=== PATIENT | female | born 1970 | race Caucasian/White ===

== ENCOUNTER 2016-11-07 16:23 | Emergency (ER) | payer MEDICAID ==
[2016-11-07 17:12] LABS: BASOPHILS 0.4 % (0.0-2.0); EOSINOPHILS 0.9 % (0-7); HEMATOCRIT 41.6 % (36.0-48.0); HEMOGLOBIN 13.7 g/dL (12-16); IMMATURE GRANULOCYTES 0.3 % (0-5); LYMPHOCYTES 26.2 % (15-50); MCH 30.9 pg (26.0-34.0); MCHC 32.9 g/dL (31.0-37.0); MCV 93.9 fL (80.0-100.0); MEAN PLATELET VOLUME 9.9 fL (7.4-10.4); NEUTROPHILS 65.2 % (40-80); RBC 4.43 10x6/uL (4.00-5.40); RDW 13.1 % (11.5-14.5); WBC 10.8 10x3/uL (4.8-10.8)
[2016-11-07 17:15] LABS: PLATELET COUNT 369 10x3/uL (130-400)
[2016-11-07 17:19] LABS: KETONE - SERUM NEGATIVE (NEGATIVE)
[2016-11-07 17:25] LABS: ALBUMIN 3.3 g/dL (3.4-5.0); ALKALINE PHOSPHATASE 86 U/L (46-116); ALT (SGPT) 29 U/L (10-68); BILIRUBIN - TOTAL 0.43 mg/dL (0.2-1.3); CALC OSMOLALITY 277 mosm/kg (275-300); CARBON DIOXIDE 27.5 mmol/L (21.0-32.0); CHLORIDE - SERUM 99 mmol/L (98-107); CREATININE - SERUM 0.7 mg/dL (0.6-1.3); GLUCOSE 251 mg/dL (74-106); POTASSIUM - SERUM 3.9 mmol/L (3.5-5.1); PROTEIN - SERUM 7.3 g/dL (6.4-8.2); SODIUM 136 mmol/L (136-145); UREA NITROGEN 8 mg/dL (7-18); eGFR NON AFRICAN AMERICAN > 90 mL/min (90-120)
[2016-11-07 17:36] LABS: APPEARANCE HAZY (CLEAR); BILIRUBIN NEGATIVE (NEGATIVE); COLOR YELLOW (YELLOW); GLUCOSE 1000 mg/dL (NEGATIVE); KETONE NEGATIVE (NEGATIVE); LEUKOCYTE ESTERASE 2+ (NEGATIVE); NITRITE NEGATIVE (NEGATIVE); PROTEIN NEGATIVE (NEGATIVE); SPECIFIC GRAVITY 1.015 (1.005-1.020); UROBILINOGEN NORMAL (NORMAL)
[2016-11-07 17:38] LABS: BACTERIA MODERATE /hpf (NONE SEEN); EPITHELIAL CELLS 0-5 /hpf (0-5); RED CELLS - URINE OCC /hpf (0-5)
== END 2016-11-07 18:21 | disposition home or self-care (01) ==
LOC: D.ER 16:23
PROVIDERS: Emergency Medicine
DX: E11.65 Type 2 diabetes mellitus with hyperglycemia (principal); L03.90 Cellulitis, unspecified; N76.0 Acute vaginitis

== ENCOUNTER 2018-07-07 15:41 | Emergency (ER) | payer MEDICAID ==
[~2018-07-07] VITALS: Ht 175.3 cm; Wt 88.6 kg
[2018-07-07 15:46] VITALS: Ht 175.3 cm; Wt 88.6 kg
[2018-07-07] MEDS ORDERED: GLUCOPHAGE1000 MG PO (15:47)
[2018-07-07] MEDS ORDERED: VENTOLIN HFA18 GM INH (15:48)
[2018-07-07] MEDS ORDERED: GLIPIZIDE10 MG PO (15:48)
[2018-07-07] MEDS ORDERED: ADVAIR HFA [SP]12 GM INH (15:48)
[2018-07-07 16:06] LABS: BASOPHILS 0.2 % (0-2); EOSINOPHILS 0.8 % (0-7); HEMATOCRIT 41.3 % (36.0-48.0); HEMOGLOBIN 14.6 g/dL (12-16); IMMATURE GRANULOCYTES 0.2 % (0-5); LYMPHOCYTES 25.5 % (15-50); MCH 31.3 pg (26.0-34.0); MCHC 35.4 g/dL (31.0-37.0); MCV 88.4 fL (80.0-100.0); MEAN PLATELET VOLUME 9.5 fL (7.4-10.4); MONOCYTES 6.4 % (2-11); NEUTROPHILS 66.9 % (40-80); PLATELET COUNT 312 10x3/uL (130-400); RBC 4.67 10x6/uL (4.00-5.40); RDW 12.2 % (11.5-14.5); WBC 12.8 10x3/uL (4.8-10.8)
[2018-07-07 16:26] LABS: ALBUMIN 3.4 g/dL (3.4-5.0); ALKALINE PHOSPHATASE 81 U/L (46-116); ALT (SGPT) 35 U/L (10-68); CALC OSMOLALITY 275 mosm/kg (275-300); CALCIUM 8.7 mg/dL (8.5-10.1); CARBON DIOXIDE 26.3 mmol/L (21.0-32.0); CHLORIDE - SERUM 101 mmol/L (98-107); CREATININE - SERUM 0.7 mg/dL (0.6-1.3); GLUCOSE 266 mg/dL (74-106); PROTEIN - SERUM 7.4 g/dL (6.4-8.2); SODIUM 134 mmol/L (136-145); UREA NITROGEN 9 mg/dL (7-18); eGFR NON AFRICAN AMERICAN > 90 mL/min (90-120)
[2018-07-07 16:26] LABS: APPEARANCE HAZY (CLEAR); BILIRUBIN NEGATIVE (NEGATIVE); COLOR YELLOW (YELLOW); GLUCOSE 1000 mg/dL (NEGATIVE); KETONE NEGATIVE (NEGATIVE); NITRITE POSITIVE (NEGATIVE); PROTEIN 1+ mg/dL (NEGATIVE); UROBILINOGEN NORMAL (NORMAL)
[2018-07-07 16:27] LABS: WHITE CELLS - URINE 25-50 /hpf (0-5)
[2018-07-07 16:28] LABS: BACTERIA MANY /hpf (NONE SEEN); EPITHELIAL CELLS 0-5 /hpf (0-5)
== END 2018-07-07 17:36 | disposition home or self-care (01) ==
LOC: D.ER 15:41
PROVIDERS: Family Medicine
DX: R10.9 Unspecified abdominal pain (principal)

== ENCOUNTER 2018-10-31 12:58 | Emergency (ER) | payer MEDICAID ==
[~2018-10-31 12:58] MED LIST: ADVAIR HFA [SP]12 GM INH; GLIPIZIDE10 MG PO; GLUCOPHAGE1000 MG PO; VENTOLIN HFA18 GM INH
[2018-10-31 13:07] VITALS: Ht 175.3 cm
[2018-10-31] MEDS ORDERED: VICTOZA0.6 MG/0.1 SQ (13:08)
[2018-10-31] MEDS ORDERED: BACLOFEN20 M1 PO (15:40)
[2018-10-31] MEDS ORDERED: VOLTAREN75 MG PO (15:40)
[2018-10-31 16:10] VITALS: BP 128/83
== END 2018-10-31 16:10 | disposition home or self-care (01) ==
LOC: D.ER 12:58
DX: S93.402A Sprain of unspecified ligament of left ankle, initial encounter (principal); W18.30XA Fall on same level, unspecified, initial encounter; Y93.89 Activity, other specified; Y92.019 Unspecified place in single-family (private) house as the place of occurrence of the external cause; E11.9 Type 2 diabetes mellitus without complications; F17.200 Nicotine dependence, unspecified, uncomplicated

== ENCOUNTER → 2019-05-31 15:30 | Outpatient (CLI) | payer OTHER ==
[~2019-05-31 15:30] MED LIST changes: +BACLOFEN20 M1 PO; +VICTOZA0.6 MG/0.1 SQ; +VOLTAREN75 MG PO
== END | disposition home or self-care (01) ==
LOC: D.RT 15:30
PROVIDERS: ATTEND Pediatrics
DX: Z02.71 Encounter for disability determination (principal)

== ENCOUNTER 2019-08-31 14:35 | Emergency (ER) | payer MEDICAID ==
[~2019-08-31] VITALS: Ht 175.3 cm; Wt 98.6 kg
[2019-08-31 14:41] VITALS: Ht 175.3 cm; Wt 98.6 kg
[2019-08-31] MEDS ORDERED: LANTUS SQ (14:44)
[2019-08-31 15:19] LABS: APPEARANCE CLEAR (CLEAR); BILIRUBIN NEGATIVE (NEGATIVE); COLOR YELLOW (YELLOW); GLUCOSE NEGATIVE (NEGATIVE); KETONE NEGATIVE (NEGATIVE); NITRITE NEGATIVE (NEGATIVE); PROTEIN NEGATIVE (NEGATIVE)
[2019-08-31 15:22] LABS: CALC OSMOLALITY 275 mosm/kg (275-300); CALCIUM 9.1 mg/dL (8.5-10.1); CARBON DIOXIDE 30.3 mmol/L (21.0-32.0); CHLORIDE - SERUM 103 mmol/L (98-107); CREATININE - SERUM 0.6 mg/dL (0.6-1.3); POTASSIUM - SERUM 3.7 mmol/L (3.5-5.1); SODIUM 139 mmol/L (136-145); UREA NITROGEN 9 mg/dL (7-18); eGFR NON AFRICAN AMERICAN > 90 mL/min (90-120)
[2019-08-31 15:28] LABS: ALBUMIN 3.5 g/dL (3.4-5.0); ALKALINE PHOSPHATASE 84 U/L (46-116); ALT (SGPT) 32 U/L (10-68); AMYLASE - SERUM 40 U/L (25-115); BASOPHILS 0.3 % (0-2); BILIRUBIN - TOTAL 0.53 mg/dL (0.2-1.3); EOSINOPHILS 0.8 % (0-7); HEMOGLOBIN 15.8 g/dL (12-16); IMMATURE GRANULOCYTES 0.2 % (0-5); LIPASE 87 U/L (73-393); LYMPHOCYTES 30.5 % (15-50); MCH 30.9 pg (26.0-34.0); MCHC 33.6 g/dL (31.0-37.0); MEAN PLATELET VOLUME 9.9 fL (7.4-10.4); MONOCYTES 6.7 % (2-11); NEUTROPHILS 61.5 % (40-80); PLATELET COUNT 337 10x3/uL (130-400); PROTEIN - SERUM 7.5 g/dL (6.4-8.2); RBC 5.11 10x6/uL (4.00-5.40); WBC 11.4 10x3/uL (4.8-10.8)
[2019-08-31 15:29] LABS: GLUCOSE 77 mg/dL (74-106)
[2019-08-31 16:37] LABS: KETONE - SERUM NEGATIVE (NEGATIVE)
[2019-08-31] MEDS ORDERED: ZOFRAN ODT4 MG/UDTAB PO (16:48)
[2019-08-31 17:27] VITALS: BP 154/90
== END 2019-08-31 17:18 | disposition home or self-care (01) ==
LOC: D.ER 14:35
PROVIDERS: Family Medicine
DX: A08.4 Viral intestinal infection, unspecified (principal); R05 Cough; E11.9 Type 2 diabetes mellitus without complications; Z79.84 Long term (current) use of oral hypoglycemic drugs; J45.909 Unspecified asthma, uncomplicated; Z72.0 Tobacco use

== ENCOUNTER 2019-11-02 20:34 | Emergency (ER) | payer MEDICAID ==
[2019-08-31 14:41] VITALS: BMI 32.1
[~2019-11-02 20:34] MED LIST changes: +LANTUS SQ; +ZOFRAN ODT4 MG/UDTAB PO
== END 2019-11-02 20:50 | disposition left against medical advice (07) ==
LOC: D.ER 20:34
DX: S99.929A Unspecified injury of unspecified foot, initial encounter (principal); X58.XXXA Exposure to other specified factors, initial encounter; Z53.29 Procedure and treatment not carried out because of patient's decision for other reasons

== ENCOUNTER 2020-12-16 10:56 | Emergency (ER) | payer MEDICAID ==
[~2020-12-16] VITALS: Ht 175.3 cm; Wt 90.0 kg
[2020-12-16 10:58] VITALS: BP 114/68; Ht 175.3 cm; Wt 90.0 kg
[2020-12-16 11:11] LABS: BILIRUBIN NEGATIVE (NEGATIVE); KETONE NEGATIVE (NEGATIVE); NITRITE POSITIVE (NEGATIVE); UROBILINOGEN NORMAL mg/dL (< 2)
[2020-12-16 11:12] LABS: WHITE CELLS - URINE 25-50 HPF (0-4)
[2020-12-16 11:13] LABS: BACTERIA MODERATE HPF (NONE SEEN); SQUAMOUS EPITHELIAL 0-5 HPF (0-4)
[2020-12-16 12:07] LABS: BASOPHILS 0.3 % (0-2); EOSINOPHILS 0.4 % (0-7); HEMATOCRIT 44.9 % (36.0-48.0); IMMATURE GRANULOCYTES 0.3 % (0-5); LYMPHOCYTE ABS# 1.92 10x3/uL (1.18-3.74); LYMPHOCYTES 13.8 % (15-50); MCH 30.8 pg (26.0-34.0); MCHC 33.4 g/dL (31.0-37.0); MCV 92.2 fL (80.0-100.0); MEAN PLATELET VOLUME 9.2 fL (7.4-10.4); MONOCYTES 7.3 % (2-11); NEUTROPHIL ABS# 10.83 10x3/uL (1.56-6.13); NEUTROPHILS 77.9 % (40-80); PLATELET COUNT 304 10x3/uL (130-400); RBC 4.87 10x6/uL (4.00-5.40); WBC 13.9 10x3/uL (4.8-10.8)
[2020-12-16 12:34] LABS: ANION GAP 8.5 mmol/L (8-16); CALCIUM 8.7 mg/dL (8.5-10.1); CARBON DIOXIDE 30.7 mmol/L (21.0-32.0); CREATININE - SERUM 0.9 mg/dL (0.6-1.3); POTASSIUM - SERUM 4.2 mmol/L (3.5-5.1)
[2020-12-16 12:40] LABS: ALBUMIN 3.5 g/dL (3.4-5.0); BILIRUBIN - TOTAL 0.77 mg/dL (0.2-1.3); PROTEIN - SERUM 6.8 g/dL (6.4-8.2)
[2020-12-16] MEDS ORDERED: CEPHALEXIN500 M1 PO (13:08)
[2020-12-16] MEDS ORDERED: MACROBID100 MG PO (13:08)
[2020-12-16] MEDS ORDERED: ZOFRAN ODT4 MG/UDTAB PO (13:23)
== END 2020-12-16 13:58 | disposition home or self-care (01) ==
LOC: D.ER 10:56
PROVIDERS: Family Medicine
DX: N12 Tubulo-interstitial nephritis, not specified as acute or chronic (principal); N39.0 Urinary tract infection, site not specified; R10.9 Unspecified abdominal pain

== ENCOUNTER 2021-02-14 09:35 | Emergency (ER) | payer MEDICAID ==
[~2021-02-14] VITALS: Ht 175.3 cm; Wt 99.5 kg
[~2021-02-14 09:35] MED LIST changes: +CEPHALEXIN500 M1 PO; +MACROBID100 MG PO
[2021-02-14 09:41] VITALS: BP 148/88; Ht 175.3 cm; Wt 99.5 kg
[2021-02-14] MEDS ORDERED: CLARITIN 10 MG10 MG PO (09:45)
[2021-02-14] MEDS ORDERED: MOBIC7.5 MG (09:45)
[2021-02-14] MEDS ORDERED: CEPHALEXIN500 M1 PO (10:23)
== END 2021-02-14 10:54 | disposition home or self-care (01) ==
LOC: D.ER 09:35
DX: S91.312A Laceration without foreign body, left foot, initial encounter (principal); E11.9 Type 2 diabetes mellitus without complications; J45.909 Unspecified asthma, uncomplicated; Z72.0 Tobacco use; Z79.4 Long term (current) use of insulin; X58.XXXA Exposure to other specified factors, initial encounter

== ENCOUNTER 2021-04-04 21:39 | Emergency (ER) | payer MEDICAID ==
[~2021-04-04] VITALS: Ht 175.3 cm; Wt 87.7 kg
[~2021-04-04 21:39] MED LIST changes: +CLARITIN 10 MG10 MG PO; +MOBIC7.5 MG
[2021-04-04 21:42] VITALS: BP 168/63; Ht 175.3 cm; Wt 87.7 kg
[2021-04-04] MEDS ORDERED: CIPRO500 MG PO (21:46)
[2021-04-04 22:14] LABS: UDS - AMPHET NEGATIVE QUAL (NEGATIVE); UDS - BARB NEGATIVE QUAL (NEGATIVE); UDS - BENZO NEGATIVE QUAL (NEGATIVE); UDS - COCAINE NEGATIVE QUAL (NEGATIVE); UDS - OPIATE NEGATIVE QUAL (NEGATIVE); UDS - PCP NEGATIVE QUAL (NEGATIVE); UDS - THC POSITIVE QUAL (NEGATIVE)
[2021-04-04 22:15] LABS: BILIRUBIN NEGATIVE (NEGATIVE); KETONE NEGATIVE mg/dL (< 1+); NITRITE NEGATIVE (NEGATIVE); SQUAMOUS EPITHELIAL 5 HPF (0-4); UROBILINOGEN NORMAL mg/dL (< 2); WHITE CELLS - URINE >182 HPF (0-4)
[2021-04-04 22:16] LABS: BACTERIA FEW HPF (<MOD)
[2021-04-04 22:49] LABS: BASOPHILS 0.9 % (0-2); EOSINOPHILS 1.4 % (0-7); HEMATOCRIT 36.9 % (36.0-48.0); HEMOGLOBIN 12.5 g/dL (12-16); LYMPHOCYTES 23.4 % (15-50); MCH 30.4 pg (26.0-34.0); MCHC 33.8 g/dL (31.0-37.0); MCV 89.8 fL (80.0-100.0); MEAN PLATELET VOLUME 8.2 fL (7.4-10.4); MONOCYTES 11.3 % (2-11); PLATELET COUNT 327 10x3/uL (130-400); RBC 4.11 10x6/uL (4.00-5.40); RDW 13.5 % (11.5-14.5)
[2021-04-04 22:59] LABS: CALC OSMOLALITY 286 mosm/kg (275-300); CALCIUM 8.6 mg/dL (8.5-10.1); CHLORIDE - SERUM 106 mmol/L (98-107); CREATININE - SERUM 0.8 mg/dL (0.6-1.3); GLUCOSE 101 mg/dL (74-106); POTASSIUM - SERUM 3.6 mmol/L (3.5-5.1); SODIUM 143 mmol/L (136-145); UREA NITROGEN 18 mg/dL (7-18); eGFR NON AFRICAN AMERICAN 80 mL/min (90-120)
[2021-04-04 23:07] LABS: ALKALINE PHOSPHATASE 80 U/L (30-120); ALT (SGPT) 34 U/L (10-68); AMYLASE - SERUM 37 U/L (25-115); BILIRUBIN - TOTAL 0.34 mg/dL (0.2-1.3); LIPASE 79 U/L (73-393); PROTEIN - SERUM 6.6 g/dL (6.4-8.2)
[2021-04-06] MEDS ORDERED: ACETAMINOPHEN500 M1 PO (09:23)
[2021-04-06] MEDS ORDERED: CEPHALEXIN500 M1 PO (09:23)
[2021-04-06] MEDS ORDERED: MACROBID100 MG PO (09:23)
[2021-04-06] MEDS ORDERED: CYCLOBENZAPRINE10 MG PO (09:23)
[2021-04-06] MEDS ORDERED: IBUPROFEN800 MG PO (09:23)
== END 2021-04-05 00:15 | disposition home or self-care (01) ==
LOC: D.ER 21:39
PROVIDERS: Emergency Medicine
DX: N30.90 Cystitis, unspecified without hematuria (principal); N12 Tubulo-interstitial nephritis, not specified as acute or chronic; E11.9 Type 2 diabetes mellitus without complications; J45.909 Unspecified asthma, uncomplicated; Z72.0 Tobacco use

== ENCOUNTER 2021-04-06 07:46 | Emergency (ER) | payer MEDICAID ==
[~2021-04-06] VITALS: Ht 175.3 cm; Wt 86.4 kg
[~2021-04-06 07:46] MED LIST changes: +CIPRO500 MG PO
[2021-04-06 07:48] VITALS: Ht 175.3 cm; Wt 86.4 kg
[2021-04-06 08:07] LABS: BILIRUBIN NEGATIVE (NEGATIVE); KETONE NEGATIVE mg/dL (< 1+); NITRITE NEGATIVE (NEGATIVE); PH 6.5 (5.0-8.0); UROBILINOGEN NORMAL mg/dL (< 2)
[2021-04-06 08:20] LABS: BASOPHILS 0.5 % (0-2); EOSINOPHILS 1.9 % (0-7); HEMATOCRIT 38.4 % (36.0-48.0); HEMOGLOBIN 12.8 g/dL (12-16); LYMPHOCYTES 30.8 % (15-50); MCH 30.4 pg (26.0-34.0); MCHC 33.4 g/dL (31.0-37.0); MCV 90.8 fL (80.0-100.0); MEAN PLATELET VOLUME 7.3 fL (7.4-10.4); MONOCYTES 8.7 % (2-11); NEUTROPHILS 58.1 % (40-80); PLATELET COUNT 370 10x3/uL (130-400); RBC 4.23 10x6/uL (4.00-5.40); RDW 13.8 % (11.5-14.5); WBC 9.2 10x3/uL (4.8-10.8)
[2021-04-06 08:30] LABS: ALKALINE PHOSPHATASE 79 U/L (30-120); ALT (SGPT) 31 U/L (10-68); BILIRUBIN - TOTAL 0.26 mg/dL (0.2-1.3); CALC OSMOLALITY 279 mosm/kg (275-300); CALCIUM 8.2 mg/dL (8.5-10.1); CARBON DIOXIDE 27.6 mmol/L (21.0-32.0); CHLORIDE - SERUM 107 mmol/L (98-107); CREATININE - SERUM 0.7 mg/dL (0.6-1.3); POTASSIUM - SERUM 3.6 mmol/L (3.5-5.1); PROTEIN - SERUM 6.8 g/dL (6.4-8.2); SODIUM 142 mmol/L (136-145); UREA NITROGEN 13 mg/dL (7-18); eGFR NON AFRICAN AMERICAN > 90 mL/min (90-120)
[2021-04-06 08:31] LABS: BACTERIA NONE SEEN HPF (<MOD); SQUAMOUS EPITHELIAL 0-5 HPF (0-4)
[2021-04-06 08:33] LABS: GLUCOSE 45 mg/dL (74-106)
[2021-04-06] MEDS ORDERED: IBUPROFEN800 MG PO (09:23)
[2021-04-06] MEDS ORDERED: CEPHALEXIN500 M1 PO (09:23)
[2021-04-06] MEDS ORDERED: CYCLOBENZAPRINE10 MG PO (09:23)
[2021-04-06] MEDS ORDERED: ACETAMINOPHEN500 M1 PO (09:23)
[2021-04-06] MEDS ORDERED: MACROBID100 MG PO (09:23)
[2021-04-06 10:41] VITALS: BP 149/87
== END 2021-04-06 10:44 | disposition home or self-care (01) ==
LOC: D.ER 07:46
PROVIDERS: Family Medicine
DX: N39.0 Urinary tract infection, site not specified (principal); E11.9 Type 2 diabetes mellitus without complications; J45.909 Unspecified asthma, uncomplicated; Z79.4 Long term (current) use of insulin